=== PATIENT | female | born 1955 | race Caucasian/White ===

== ENCOUNTER 2019-03-28 19:10 | Emergency (ER) | payer MEDICAID ==
[~2019-03-28] VITALS: Ht 149.9 cm; Wt 59.0 kg
[~2019-03-28 19:10] MED LIST: NO HOME MEDS
[2019-03-28 20:11] VITALS: BP 142/95
[2019-03-28] MEDS ORDERED: normal saline 1000ML IV soln IVB ONE (20:40)
[2019-03-28 20:50] LABS: CLARITY,URINE CLEAR (Clear); COLOR,URINE AMBER (Yellow); GLUCOSE, URINE NEGATIVE (Neg); KETONES,URINE 15 mg/dl (Neg); LEUKOCYTE ESTERASE ,URINE NEGATIVE (Neg); NITRITES, URINE NEGATIVE (Neg); OCCULT BLOOD,URINE NEGATIVE (Neg); PH,URINE 5.5 (4.8-8.0); PROTEIN,URINE NEGATIVE (Neg)
[2019-03-28 20:51] LABS: UA COLLECTION TYPE CLN CATCH MIDSTREAM
[2019-03-28 21:13] LABS: BASOPHILS # (AUTO) 0.2 X10'3 (0-0.2); BASOPHILS % (AUTO) 1.3 % (0-1); EOSINOPHILS # (AUTO) 0.2 X10'3 (0-0.9); EOSINOPHILS % (AUTO) 1.5 % (0-6); HEMATOCRIT 39.3 % (35.0-45.0); HEMOGLOBIN 12.8 g/dl (12.0-16.0); LYMPHOCYTES # (AUTO) 3.5 X10'3 (1.1-4.8); MEAN CORPUSCULAR HEMOGLOBIN 28.5 PG (27.0-31.0); MEAN CORPUSCULAR HGB CONC 32.6 g/dL (33.0-36.5); MEAN CORPUSCULAR VOLUME 87.5 FL (78-98); MEAN PLATELET VOLUME 6.9 FL (7.4-10.4); MONOCYTES # (AUTO) 0.8 X10'3 (0-0.9); MONOCYTES % (AUTO) 5.9 % (2-12); NEUTROPHILS # (AUTO) 8.3 X10'3 (1.8-7.7); NEUTROPHILS % (AUTO) 64.3 % (42-75); PLATELET COUNT 515 X10'3 (140-440); RED CELL DISTRIBUTION WIDTH 14.9 % (11.5-14.5); WHITE BLOOD COUNT 12.9 X10'3 (4.5-11.0)
[2019-03-28 21:25] LABS: ALANINE AMINOTRANSFERASE 16 U/L (12-78); ALBUMIN 3.4 G/DL (3.4-5.0); ALBUMIN/GLOBULIN RATIO 0.9 (1.1-1.5); ALKALINE PHOSPHATASE 98 IU/L (46-116); ANION GAP 11 (8-16); ASPARTATE AMINO TRANSFERASE 12 U/L (10-37); BILIRUBIN,TOTAL 0.3 MG/DL (0.1-1.0); BLOOD UREA NITROGEN 24 MG/DL (7-18); CALCIUM 9.7 MG/DL (8.5-10.1); CHLORIDE 108 MMOL/L (99-107); GLUCOSE 106 MG/DL (70-104); POTASSIUM 3.7 MMOL/L (3.5-5.1); SODIUM 145 MMOL/L (135-145); TOTAL CARBON DIOXIDE 26.2 MMOL/L (24-32); TOTAL PROTEIN 7.2 G/DL (6.4-8.2)
[2019-03-28 21:28] LABS: BUN/CREATININE RATIO 24.5 (6.6-38.0); CREATININE 0.98 MG/DL (0.40-0.90); eGFR 57 ML/MIN
== END 2019-03-28 22:27 | disposition home or self-care (01) ==
LOC: ER 19:11
DX: M79.605 Pain in left leg (principal); R05 Cough; R11.0 Nausea; I10 Essential (primary) hypertension; J45.909 Unspecified asthma, uncomplicated; K21.9 Gastro-esophageal reflux disease without esophagitis; G89.29 Other chronic pain; M06.9 Rheumatoid arthritis, unspecified; C50.919 Malignant neoplasm of unspecified site of unspecified female breast; F41.9 Anxiety disorder, unspecified; F17.200 Nicotine dependence, unspecified, uncomplicated; Z59.0 Homelessness; Z88.8 Allergy status to other drugs, medicaments and biological substances
CPT/HCPCS: 80053; 81003; 84484; 85025; 93005; 99284; J7040; 36415

== ENCOUNTER 2022-07-18 12:49 | Emergency (ER) | payer MEDICARE, MEDICAID ==
[~2022-07-18] VITALS: Ht 157.5 cm; Wt 77.3 kg
[2022-07-18 13:21] VITALS: BP 145/92
[2022-07-18] MEDS ORDERED: NAPR-56 PO (15:04)
[2022-07-18] MEDS ORDERED: ketorolac trometh inj. 60 MG/2 ML VIAL IM ONE (15:05)
== END 2022-07-18 16:07 | disposition home or self-care (01) ==
LOC: ER 12:49
DX: M70.21 Olecranon bursitis, right elbow (principal); Y93.89 Activity, other specified; M25.551 Pain in right hip; I10 Essential (primary) hypertension; J45.909 Unspecified asthma, uncomplicated; K21.9 Gastro-esophageal reflux disease without esophagitis; G89.29 Other chronic pain; F41.9 Anxiety disorder, unspecified; Z88.1 Allergy status to other antibiotic agents; Z79.899 Other long term (current) drug therapy
CPT/HCPCS: 73080; 73502; 96372; 99284; J1885

== ENCOUNTER 2024-11-09 21:54 | Emergency (ER) | payer MEDICARE, MEDICAID ==
[~2024-11-09] VITALS: Ht 147.3 cm; Wt 70.9 kg
--- NOTE | 2024-11-09 22:14 | ELECTROCARDIOGRAPH REPORT ---
[facility] Test Date: 2024-11-09 Test Time: 22:11:09 Pat Name: KAY GRIFFITH Department: SHORT STAY 1ST FLOOR Patient ID: [id number] Room: Gender: F [employer]: JACK : 1955 Requested By: KIP COLÓN Order Number: [id number] Reading MD: Dr. John Osullivan Measurements Intervals [place] Rate: 94 P: 63 [place]: 139 QRS: 29 QRSD: 91 T: 172 QT: 337 QTc: 422 Interpretive Statements Sinus rhythm Ventricular premature complex Abnormal T, consider ischemia, lateral leads Electronically Signed On 11-10-2024 13:11:[address] John Osullivan Please click the below link to view image of tracing.
[2024-11-09 22:56] LABS: BASOPHILS % (AUTO) 0.4 % (0-1); EOSINOPHILS # (AUTO) 0.3 X10'3 (0-0.9); EOSINOPHILS % (AUTO) 2.3 % (0-6); HEMATOCRIT 39.8 % (35.0-45.0); HEMOGLOBIN 12.9 g/dl (12.0-16.0); LYMPHOCYTES # (AUTO) 5.1 X10'3 (1.1-4.8); LYMPHOCYTES % (AUTO) 44.1 % (21-51); MEAN CORPUSCULAR HEMOGLOBIN 28.4 PG (27.0-31.0); MEAN CORPUSCULAR HGB CONC 32.3 g/dL (33.0-36.5); MEAN CORPUSCULAR VOLUME 87.9 FL (78-98); MEAN PLATELET VOLUME 7.3 FL (7.4-10.4); MONOCYTES # (AUTO) 0.6 X10'3 (0-0.9); MONOCYTES % (AUTO) 5.5 % (2-12); NEUTROPHILS # (AUTO) 5.6 X10'3 (1.8-7.7); NEUTROPHILS % (AUTO) 47.7 % (42-75); PLATELET COUNT 506 X10'3 (140-440); RED BLOOD COUNT 4.53 X10'6 (4.20-5.60); RED CELL DISTRIBUTION WIDTH 14.8 % (11.5-14.5); WHITE BLOOD COUNT 11.7 X10'3 (4.5-11.0)
[2024-11-09 23:00] LABS: ANION GAP 11 (8-16); BLOOD UREA NITROGEN 32 MG/DL (7-18); BUN/CREATININE RATIO 32.3 (10.0-20.0); CALCIUM 8.9 MG/DL (8.5-10.1); CHLORIDE 110 MMOL/L (99-107); CREATININE 0.99 MG/DL (0.40-0.90); GLUCOSE 106 MG/DL (70-104); POTASSIUM 3.5 MMOL/L (3.5-5.1); SODIUM 145 MMOL/L (135-145); TOTAL CARBON DIOXIDE 23.9 MMOL/L (24-32); eCRCL 35 ML/MIN; eGFR 56 ML/MIN
--- NOTE | 2024-11-09 23:58 | RADIOLOGY REPORT ---
Clinical History SOB Comparison None Technique: One view Without Contrast GLADISKUSHKAY, [id number] FINDINGS: The aorta is within normal limits. The heart size is within normal limits. Lungs are clear. Osteop enia is identified. No discrete osseous lesion is noted. IMPRESSION: No evidence of acute cardiopulmonary disease. Osteopenia. This report was electronically signed by Jovanny Oconnor MD on 11/09/2024 11:55:13 PM.
--- NOTE | 2024-11-10 00:26 | Physician Documentation ---
History of Present Illness ~ Chief Complaint: Shortness of Breath Stated Complaint: COPD Time Seen by MD: 00:25 Primary Medical Doctor: KVNG SILVA Mode of Arrival: EMS HPI 69-year-old female history of COPD presenting for shortness of breath. She had run out of her inhalers. Medication Reconciliation Allergies: Coded Allergies: levothyroxine sodium (Verified Allergy, Unknown, SYNTHETIC THYROID, 11/09/24) lorazepam (Verified Adverse Reaction, Unknown, 11/09/24) pt reports drug makes her have S/I Uncoded Allergies: MAYONAISE,MUSTARD,SOUR CREAM (Adverse Reaction, Intermediate, PROJECTILE VOMITING, 10/22/10) Scheduled Prednisone* (Prednisone*), 3 TAB PO DAILY Scheduled PRN albuterol inhaler (Pro-Air Inhaler), 2 PUFFS INH Q4HPRN PRN for wheezing Miscellaneous Medications Home Med List (No Home Medications), (Reported) Durable Medical Equipment Inhaler, Assist Devices (Breatherite Spacer-Adult Mask), UNIT INH PRN PRN for cough, (DME) Past Medical History Past Medical History: Hypertension, Asthma, GERD, Chronic Pain, Chronic Back Pain, Fibromyalgia, Osteoporosis, Rheumatoid Arthritis, Breast Cancer, Anxiety Past Surgical History: no surgical history Alcohol Use: None Drug Use: none Lives In: Homeless Review of Systems All Other Systems at this time: Reviewed and Negative Physical Exam Vital Signs: Temperature: 98.3, Source: Oral, Heart Rate: 90, Respiratory Rate: 18, BP: 141/75, Pulse Oximetry: 99, Weight: 70.910 Oxygen Flow Rate: 0 Physical Exam chronic appearing no distress Left lower extremity knee swelling, intact range of motion, no calf tenderness negative Homans Lungs mild expiratory wheezes Intermittent cough Progress Results/Orders Results/Orders Orders - KIP COLÓN MD Chest,Single View (11/09/24 22:07) Monitor (11/09/24 22:07) Knee Limited (Ap/Lat) (11/10/24 00:43) Completed Orders - KIP COLÓN MD Electrocardiogram (11/09/24 22:07) Cbc/Diff (11/09/24 22:07) Chest,Single View (11/09/24 22:07) BMP (11/09/24 22:07) Troponin (Single) (11/10/24 00:41) Knee Limited (Ap/Lat) (11/10/24 00:43) Prednisone Tablet (Prednisone Tablet) (11/10/24 02:45) Medications Received in ER Medications (Trade) Dose Ordered Sig/Mitali Route PRN Reason Start Time Stop Time Status Last Admin Dose Admin (predniSONE tablet) 60 mg ONCE ONCE PO 11/10/24 02:45 11/10/24 02:46 DC 11/10/24 02:57 60 MG Vital Signs 11/09/24 11/09/24 11/09/24 11/10/24 22:02 22:10 23:30 01:30 Temp 98.3 Pulse 94 90 84 Resp 18 18 18 18 B/P (MAP) 157/80 141/75 (97) 159/79 (105) Pulse Ox 97 99 99 O2 Flow Rate 0 0 0 11/10/24 11/10/24 03:23 03:51 Temp 97.6 Pulse 85 74 Resp 18 18 B/P (MAP) 149/79 (102) 142/80 Pulse Ox 99 99 O2 Flow Rate 0 Laboratory Tests Test 11/09/24 22:22 11/10/24 00:55 White Blood Count 11.7 H Red Blood Count 4.53 Hemoglobin 12.9 Hematocrit 39.8 Mean Corpuscular Volume 87.9 Mean Corpuscular Hemoglobin 28.4 Mean Corpuscular Hemoglobin Concent 32.3 L Red Cell Distribution Width 14.8 H Platelet Count 506 H Mean Platelet Volume 7.3 L Neutrophils (%) (Auto) 47.7 Lymphocytes (%) (Auto) 44.1 Monocytes (%) (Auto) 5.5 Eosinophils (%) (Auto) 2.3 Basophils (%) (Auto) 0.4 Neutrophils # (Auto) 5.6 Lymphocytes # (Auto) 5.1 H Monocytes # (Auto) 0.6 Eosinophils # (Auto) 0.3 Basophils # (Auto) 0.0 CBC Comment Sodium Level 145 Potassium Level 3.5 Chloride Level 110 H Carbon Dioxide Level 23.9 L Anion Gap 11 Blood Urea Nitrogen 32 H Creatinine 0.99 H Estimated GFR/1.73 m2 56 BUN/Creatinine Ratio 32.3 H Glucose Level 106 H Calcium Level 8.9 Albumin 3.0 L Chemistry Comments Troponin I High Sensitivity 18 EKG/XRAY/CT/US/VASC/MRI EKG : Additional Comment Independent interpretation of EKG time 10:11 p.m. indication shortness of breath. Normal sinus rhythm rate 94 normal axis normal intervals lateral ST depressions Ultrasound : Impression Point of care bedside ultrasound left lower extremity showing no common femoral popliteal DVT, no cyst Medical Decision Making Additional info obtained from: old records Findings Discharge summary 2015 Additional Infomation Septic joint, arthritis, DVT, asthma, COPD Departure Disposition: HOME / SELF CARE / HOMELESS Impression: Primary Impression: Asthma Qualified Codes: J45.41 - Moderate persistent asthma with (acute) exacerbation Additional Impression: Arthritis Additional Instructions: Please follow up with your primary care physician. Return if you develop worsening shortness of breath Referrals: NO PRIMARY CARE PROVIDER (PCP) Prescriptions Inhaler, Assist Devices (Breatherite Spacer-Adult Mask) 1 Each Spacer UNIT INH PRN PRN for cough, #1 Prov: KIP COLÓN MD 11/10/24 albuterol inhaler (Pro-Air Inhaler) 8.5 Gm Inhaler 2 PUFFS INH Q4HPRN PRN for wheezing for 30 Days, #18 GM Prov: KIP COLÓN MD 11/10/24 Prednisone* (Prednisone*) 20 Mg Tablet 3 TAB PO DAILY, #15 TAB Prov: KIP COLÓN MD 11/10/24 Signature Scribe Signature: na Attestation: KIP Reynoso MD November 10, 2024 00:26
--- NOTE | 2024-11-10 02:24 | RADIOLOGY REPORT ---
Clinical History fall, knee pain Comparison None Technique: 2 views left knee Without Contrast KAY GRIFFITH, [id number] FINDINGS: Limited 2 view study of left knee does not suggest acute fracture or dislocation. There are severe degenerative changes including multicompartment loss of joint space, prominent spurr ing on femoral condyles, tibial plateaus and patella IMPRESSION: 1. No evidence of acute fracture or dislocation. 2. Severe degenerative changes as described, no definite lytic or blastic bone lesion identified.. This report was electronically signed by Pawel Hwang MD on 11/10/2024 2:22:08 AM.
[2024-11-10] MEDS ORDERED: PRED20TA PO (02:43)
[2024-11-10] MEDS ORDERED: ALBU8HFA INH (02:43)
[2024-11-10] MEDS ORDERED: INHA1EAC52 INH (02:44)
[2024-11-10] MEDS: predniSONE 20 mg tablet PO ONE (02:57)
[2024-11-10 03:51] VITALS: BP 142/80; PULSE 74; RESP 18; TEMP 97.6; O2SAT 99
== END 2024-11-10 03:55 | disposition home or self-care (01) ==
LOC: ER 21:54
DX: J45.909 Unspecified asthma, uncomplicated (principal); I10 Essential (primary) hypertension; K21.9 Gastro-esophageal reflux disease without esophagitis; F41.9 Anxiety disorder, unspecified; M79.7 Fibromyalgia; Z85.3 Personal history of malignant neoplasm of breast; Z59.00 Homelessness unspecified; Z88.8 Allergy status to other drugs, medicaments and biological substances; Z79.899 Other long term (current) drug therapy
CPT/HCPCS: 36415; 71045; 73560; 80048; 84484; 85025; 93005; 99285; J7512

== ENCOUNTER 2025-04-15 14:31 | Emergency (ER) | payer MEDICARE, MEDICAID ==
[~2025-04-15] VITALS: Ht 167.6 cm; Wt 68.2 kg
[~2025-04-15 14:31] MED LIST changes: +INHA1EAC52 INH
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
[2025-04-15 16:50] LABS: MEAN PLATELET VOLUME 6.6 FL (7.4-10.4); RED CELL DISTRIBUTION WIDTH 13.6 % (11.5-14.5)
[2025-04-15 17:06] LABS: CREATININE 0.90 MG/DL (0.40-0.90); TOTAL CARBON DIOXIDE 28.7 MMOL/L (24-32); eCRCL 55 ML/MIN; eGFR 62 ML/MIN
[2025-04-15 17:17] LABS: ETHANOL < 10 MG/DL (<10)
[2025-04-15 20:05] LABS: LEUKOCYTE ESTERASE ,URINE NEGATIVE (Neg); NITRITES, URINE NEGATIVE (Neg); OCCULT BLOOD,URINE NEGATIVE (Neg)
[2025-04-15 20:12] LABS: UA COLLECTION TYPE CLN CATCH MIDSTREAM; URINE AMPHETAMINE SCREEN POSITIVE (Neg); URINE BARBITUATE SCREEN NEGATIVE (Neg); URINE BENZODIAZEPINES SCREEN NEGATIVE (Neg); URINE CANNABINOID SCREEN NEGATIVE (Neg); URINE COCAINE SCREEN NEGATIVE (Neg); URINE METHADONE SCREEN NEGATIVE (Neg); URINE OPIATE SCREEN NEGATIVE (Neg); URINE PHENCYCLIDINE SCREEN NEGATIVE (Neg)
[2025-04-15] MEDS: nicotine 21mg patch - 24 hr TD ONE (20:47)
[2025-04-16 05:51] VITALS: TEMP 98.6
[2025-04-17 14:44] VITALS: BP 165/99; PULSE 109; RESP 18; O2SAT 98
== END 2025-04-17 15:04 | disposition home or self-care (01) ==
LOC: ER 14:32
DX: Z00.8 Encounter for other general examination (principal); F15.10 Other stimulant abuse, uncomplicated; K21.9 Gastro-esophageal reflux disease without esophagitis; F41.9 Anxiety disorder, unspecified; I10 Essential (primary) hypertension; J45.909 Unspecified asthma, uncomplicated; M06.9 Rheumatoid arthritis, unspecified; M79.7 Fibromyalgia; M81.0 Age-related osteoporosis without current pathological fracture; Z20.822 Contact with and (suspected) exposure to COVID-19
CPT/HCPCS: 36415; 80048; 80305; 81003; 83690; 85025; 87811; 99284; G0480; 80320

== ENCOUNTER 2025-05-25 14:43 | Emergency (ER) | payer MEDICARE, MEDICAID ==
[~2025-05-25] VITALS: Ht 149.9 cm; Wt 53.0 kg
[2025-05-25 15:05] VITALS: TEMP 97.9
--- NOTE | 2025-05-25 15:09 | Physician Documentation ---
History of Present Illness ~ Chief Complaint: Diarrhea Stated Complaint: FOOT PAIN/DIARRHEA Time Seen by MD: 15:08 Primary Medical Doctor: KVNG SILVA HPI 70-year-old female, homeless, who presents with foot pain and diarrhea She tells me that she has several issues currently: 1. She reports having foot pain. She states that both of her feet feel intermittently hot and then cold and then feel like they are ants crawling on them. This has been going on for a couple of days. 2. She reports having an episode of explosive diarrhea this morning. She is not know if there was blood in it because she is legally blind 3. She reports upper abdominal pain. She reports acid reflux type symptoms as well. The pain is worse in the left upper abdomen. She has not been able to eat because of the pain, lack appetite, and intermittent nausea. No fevers. No respiratory symptoms. She did not have any medications to treat the symptoms. She is currently homeless and living at the [facility]. Medication Reconciliation Allergies: Coded Allergies: levothyroxine sodium (Verified Allergy, Unknown, SYNTHETIC THYROID, 04/15/25) lorazepam (Verified Adverse Reaction, Unknown, 04/15/25) pt reports drug makes her have S/I Uncoded Allergies: MAYONAISE,MUSTARD,SOUR CREAM (Adverse Reaction, Intermediate, PROJECTILE VOMITING, 10/22/10) Scheduled Omeprazole (Prilosec), 1 CAP PO DAILY Scheduled PRN ONDANSETRON ODT 4mg tablet (Ondansetron Odt), 1 TAB PO Q6H PRN PRN for nausea/vomiting Past Medical History Past Medical History: Hypertension, Asthma, GERD, Chronic Pain, Chronic Back Pain, Fibromyalgia, Osteoporosis, Rheumatoid Arthritis, Breast Cancer, Anxiety Past Surgical History: no surgical history Alcohol Use: None Drug Use: none Lives In: Homeless Review of Systems Constitutional: Denies: fever Gastrointestinal: Reports: abdominal pain, nausea, vomiting Physical Exam Vital Signs: Temperature: 97.9, Source: Oral, Heart Rate: 82, Respiratory Rate: 14, BP: 139/89, Pulse Oximetry: 99, Weight: 53.000 Physical Exam General: This is a chronically ill-appearing older woman lying quietly in bed, no vomiting while I am in the room HEENT: Atraumatic, oropharynx appears dry Heart: Regular rate and rhythm, normal-appearing peripheral perfusion Lungs: normal work of breathing, normal oxygen saturation on room air Abdomen: Soft, nondistended, no tenderness to palpation in the lower abdomen. She does have focal tenderness to palpation in the left upper quadrant and epigastric region only, without rebound or guarding Extremities: Warm and well-perfused The patient does not have any significant skin changes to either of her feet including no significant skin breakdown, open wounds, or erythema. No significant edema. She does report having some uncomfortable sensation to light touch in both feet in a stocking glove distribution Neuro: Alert and oriented, legally blind Psychiatric: Calm and cooperative with exam Progress Results/Orders Results/Orders Completed Orders - CONY SHEETS MD Cbc/Diff (05/25/25 15:08) CMP (05/25/25 15:08) Lipase (05/25/25 15:08) Ondansetron Disint. Tablet (Zofran Odt T (05/25/25 15:50) Mag & Alum Hydrox/Simeth Susp (Maalox Or (05/25/25 15:50) Lidocaine 2% Viscous (Xylocaine 2% Visco (05/25/25 15:50) Pantoprazole Tablet (Protonix) (05/25/25 15:50) Medications Received in ER Medications (Trade) Dose Ordered Sig/Mitali Route PRN Reason Start Time Stop Time Status Last Admin Dose Admin (Zofran ODT tablet) 4 mg ONCE ONCE PO 05/25/25 15:50 05/25/25 15:51 DC 05/25/25 16:02 4 MG (Maalox oral suspension) 30 ml ONCE ONCE PO 05/25/25 15:50 05/25/25 15:51 DC 05/25/25 16:01 30 ML (Xylocaine 2% Viscous 15mL cup) 15 ml ONCE ONCE MM 05/25/25 15:50 05/25/25 15:51 DC 05/25/25 16:01 15 ML (Protonix) 40 mg BKF ONCE PO 05/25/25 15:50 05/25/25 15:51 DC 05/25/25 16:02 40 MG Vital Signs 05/25/25 05/25/25 05/25/25 05/25/25 14:56 15:05 16:04 16:25 Temp 97.9 97.9 Pulse 87 82 85 Resp 14 14 16 B/P (MAP) 139/89 139/89 (106) 97/46 (63) Pulse Ox 98 99 94 O2 Flow Rate 0 Laboratory Tests Test 05/25/25 15:29 White Blood Count 8.4 Red Blood Count 4.82 Hemoglobin 14.5 Hematocrit 42.8 Mean Corpuscular Volume 89.0 Mean Corpuscular Hemoglobin 30.0 Mean Corpuscular Hemoglobin Concent 33.7 Red Cell Distribution Width 13.7 Platelet Count 412 Mean Platelet Volume 7.7 Neutrophils (%) (Auto) 72.5 Lymphocytes (%) (Auto) 22.0 Monocytes (%) (Auto) 3.2 Eosinophils (%) (Auto) 1.1 Basophils (%) (Auto) 1.2 H Neutrophils # (Auto) 6.1 Lymphocytes # (Auto) 1.8 Monocytes # (Auto) 0.3 Eosinophils # (Auto) 0.1 Basophils # (Auto) 0.1 CBC Comment Sodium Level 141 Potassium Level 3.8 Chloride Level 106 Carbon Dioxide Level 23.8 L Anion Gap 11 Blood Urea Nitrogen 18 Creatinine 0.77 Estimated GFR/1.73 m2 74 BUN/Creatinine Ratio 23.4 H Glucose Level 82 Calcium Level 9.6 Total Bilirubin 0.6 Aspartate Amino Transf (AST/SGOT) 14 Alanine Aminotransferase (ALT/SGPT) 10 L Alkaline Phosphatase 98 Total Protein 7.2 Albumin 3.7 Globulin 3.5 Albumin/Globulin Ratio 1.1 Lipase 18 Chemistry Comments Medical Decision Making Additional information obtaine: N/A Findings na Diff Dx GI Bleed:Consideration: Include: Esophagitis, Gastritis Diff Dx Pain:Considerations: Include: Constipation, Gastritis/PUD Diff Dx N/V/D:Considerations: Include: Electrolyte imbalance, Food poisoning, Gastroenteritis Diff Dx Rectal:Considerations: Unlikely: Perirectal abscess Additional Comments The patient presents with foot pain, diarrhea, and epigastric pain that seems consistent with gastritis. She otherwise has a benign abdominal exam. She was given nausea medicine, antacids, and then something to eat and drink. Lab work is unremarkable including normal LFTs and blood counts. After further observ ation, her symptoms had improved, she was able to eat food without vomiting, had no further diarrhea. At this time she does not appear to have an acute medical or surgical emergency. Her foot pain does not appear to be a dangerous issue. She will be discharged with omeprazole and Zofran and outpatient follow up. Departure Disposition: HOME / SELF CARE / HOMELESS Impression: Primary Impression: Acute gastritis Additional Impressions: Diarrhea Foot pain Condition: Improved Discharge Instructions: Gastritis, Adult Referrals: NO PRIMARY CARE PROVIDER (PCP) Prescriptions ONDANSETRON ODT 4mg tablet (ONDANSETRON ODT) 4 Mg Tab.rapdis 1 TAB PO Q6H PRN PRN for nausea/vomiting for 4 Days, #16 TAB 1 Refill Prov: CONY SHEETS MD 05/25/25 Omeprazole (Prilosec) 40 Mg Capsule 1 CAP PO DAILY for 30 Days, #30 CAP Prov: CONY SHEETS MD 05/25/25 Education Educated: Patient Educated regarding: diagnosis, treatment, need for follow up Signature Scribe Signature: puma Attestation: CONY Weeks MD May 25, 2025 15:09
[2025-05-25 15:40] LABS: MEAN PLATELET VOLUME 7.7 FL (7.4-10.4); RED CELL DISTRIBUTION WIDTH 13.7 % (11.5-14.5)
[2025-05-25 15:54] LABS: CREATININE 0.77 MG/DL (0.40-0.90); TOTAL CARBON DIOXIDE 23.8 MMOL/L (24-32); eCRCL 46 ML/MIN; eGFR 74 ML/MIN
[2025-05-25] MEDS: LIDOcaine 2% Viscous 15ml cup MM ONE (16:01)
[2025-05-25] MEDS: mag hydrox/Alum hydrox/simeth 30ml oral suspension PO ONE (16:01)
[2025-05-25] MEDS: pantoprazole 40mg Tablet.DR PO ONE (16:02)
[2025-05-25] MEDS: ondansetron 4mg rapidly disintigrating tab PO ONE (16:02)
[2025-05-25 16:04] VITALS: PULSE 85; RESP 16
[2025-05-25] MEDS ORDERED: OMEP40CA21 PO (16:56)
[2025-05-25] MEDS ORDERED: ONDA-243 PO (16:56)
[2025-05-25 17:22] VITALS: BP 143/119; O2SAT 94
== END 2025-05-25 17:25 | disposition home or self-care (01) ==
LOC: ER 14:43
DX: K29.00 Acute gastritis without bleeding (principal); R19.7 Diarrhea, unspecified; M79.673 Pain in unspecified foot; M79.7 Fibromyalgia; F41.9 Anxiety disorder, unspecified; K21.9 Gastro-esophageal reflux disease without esophagitis; J45.909 Unspecified asthma, uncomplicated; I10 Essential (primary) hypertension; G89.29 Other chronic pain; Z85.3 Personal history of malignant neoplasm of breast; Z59.00 Homelessness unspecified; Z88.8 Allergy status to other drugs, medicaments and biological substances; Z79.899 Other long term (current) drug therapy
CPT/HCPCS: 36415; 80053; 83690; 85025; 99284